=== PATIENT | male | born 1945 | race Caucasian/White ===

== ENCOUNTER 2017-09-19 11:09 | Inpatient (IN) | payer MEDICARE ==
[2017-09-19 11:47] LABS: ADD MAN DIFF? NO
[2017-09-19 11:49] LABS: BASO % 0 % (0-3); EOS % 0 % (0-3); HEMOGLOBIN 13.2 g/dL (13.0-17.5); LYMPH # 0.4 x10^3/uL (1.0-4.8); LYMPH % 5 % (24-48); MEAN CORPUSCULAR HEMOGLOBIN 28 pg (25-35); MEAN CORPUSCULAR HGB CONC 33 g/dL (31-37); MEAN CORPUSCULAR VOLUME 84 fL (79-100); MONO # 0.5 x10^3/uL (0.0-1.1); MONO % 6 % (0-9); NEUT # 7.1 x10^3uL (1.8-7.7); NEUT % 88 % (31-73); PLATELET COUNT 272 x10^3/uL (140-400); RED BLOOD COUNT 4.77 x10^6/uL (4.30-5.70); RED CELL DISTRIBUTION WIDTH 14.8 % (11.5-14.5); WHITE BLOOD COUNT 8.1 x10^3/uL (4.0-11.0)
[2017-09-19 12:02] LABS: ANION GAP 11 (6-14); BLOOD UREA NITROGEN 10 mg/dL (8-26); BUN/CREATININE RATIO 11 (6-20); CALCIUM 9.2 mg/dL (8.5-10.1); CARBON DIOXIDE 28 mmol/L (21-32); CHLORIDE 94 mmol/L (98-107); CREATININE 0.9 mg/dL (0.7-1.3); GFR 82.9; GLUCOSE 86 mg/dL (70-99); POTASSIUM 4.1 mmol/L (3.5-5.1); SODIUM 133 mmol/L (136-145)
[2017-09-19] MEDS: ONDANSETRON PF 4 MG/2 ML VIAL. IV (12:04)
[2017-09-19] MEDS: fentaNYL PF VIAL 100 MCG/2 ML VIAL IV (12:05)
[2017-09-19] MEDS: KETOROLAC 15 MG/ML VIAL. IV (12:05)
[2017-09-19 12:08] LABS: ALBUMIN/GLOBULIN RATIO 0.7 (1.0-1.7); ALK PHOS 108 U/L (46-116); ALT (SGPT) 15 U/L (16-63); AST (SGOT) 33 U/L (15-37); TOTAL BILIRUBIN 0.9 mg/dL (0.2-1.0); TOTAL PROTEIN 7.2 g/dL (6.4-8.2)
[2017-09-19 13:48] LABS: BILIRUBIN,URINE MODERATE (NEG); CLARITY,URINE CLEAR; COLOR,URINE YELLOW; GLUCOSE,URINE NEGATIVE (NEG); NITRITE,URINE NEGATIVE (NEG); PH,URINE 5.5; PROTEIN,URINE NEGATIVE (NEG-TRACE)
[2017-09-19 14:04] LABS: BACTERIA,URINE 0 /HPF (0-FEW); HYALINE CASTS, URINE MODERATE /HPF; RBC,URINE 0 /HPF (0-2); SPERM,URINE PRESENT /HPF
[2017-09-19] MEDS ORDERED: ONDANSETRON PF 4 MG/2 ML VIAL. IV (15:30)
[2017-09-19] MEDS ORDERED: hydrALAZINE 20 MG/ML VIAL. IVP (15:30)
[2017-09-19] MEDS ORDERED: DOCUSATE SODIUM 100 MG CAPSULE. PO (15:30)
[2017-09-19] MEDS: IPRATRPIUM/ALBUTEROL 0.5/2.5MG 3 ML NEBU. NEB ×2 (16:12→20:13)
[2017-09-19] MEDS: MORPHINE SULFATE 2 MG/ML DISP.SYRIN. IV ×2 (16:36→19:43)
[2017-09-19] MEDS: ENOXAPARIN 40 MG/0.4 ML SYRINGE. SQ (16:37)
[2017-09-19] MEDS: oxyCODONE/APAP 5/325 1 TAB TABLET PO (19:52)
[2017-09-19] MEDS: BUDESONIDE 0.5 MG/2 ML NEBU. NEB (20:13)
[2017-09-19] MEDS ORDERED: NON FORMULARY ITEM (Fluticasone Propionate (Flovent 110MCG Hfa) 1 PUFF) IH (21:00)
[2017-09-19] MEDS: METOPROLOL TART IMMED RELEASE 50 MG TABLET. PO (21:13)
[2017-09-20] MEDS: ALBUTEROL SULFATE 2.5 MG/3 ML NEBU. NEB (02:53)
[2017-09-20] MEDS: MORPHINE SULFATE 2 MG/ML DISP.SYRIN. IV ×3 (03:39→09:00)
[2017-09-20 04:52] LABS: ADD MAN DIFF? NO
[2017-09-20 04:59] LABS: BASO % 1 % (0-3); EOS # 0.1 x10^3/uL (0.0-0.7); EOS % 2 % (0-3); HEMATOCRIT 39.2 % (39.0-53.0); HEMOGLOBIN 12.8 g/dL (13.0-17.5); LYMPH # 0.4 x10^3/uL (1.0-4.8); LYMPH % 7 % (24-48); MEAN CORPUSCULAR HEMOGLOBIN 28 pg (25-35); MEAN CORPUSCULAR HGB CONC 33 g/dL (31-37); MEAN CORPUSCULAR VOLUME 85 fL (79-100); MONO # 0.6 x10^3/uL (0.0-1.1); MONO % 10 % (0-9); NEUT % 80 % (31-73); PLATELET COUNT 247 x10^3/uL (140-400); RED BLOOD COUNT 4.62 x10^6/uL (4.30-5.70); RED CELL DISTRIBUTION WIDTH 15.1 % (11.5-14.5); WHITE BLOOD COUNT 6.2 x10^3/uL (4.0-11.0)
[2017-09-20 05:11] LABS: ANION GAP 8 (6-14); BLOOD UREA NITROGEN 8 mg/dL (8-26); CALCIUM 9.3 mg/dL (8.5-10.1); CARBON DIOXIDE 31 mmol/L (21-32); CHLORIDE 96 mmol/L (98-107); CREATININE 0.9 mg/dL (0.7-1.3); GFR 82.9; GLUCOSE 81 mg/dL (70-99); POTASSIUM 5.1 mmol/L (3.5-5.1); SODIUM 135 mmol/L (136-145)
[2017-09-20] MEDS: PANTOPRAZOLE 40 MG TABLET.DR. PO (07:30)
[2017-09-20] MEDS: METOPROLOL TART IMMED RELEASE 50 MG TABLET. PO ×2 (08:58→21:37)
[2017-09-20] MEDS ORDERED: NON FORMULARY ITEM (Tiotropium Bromide (Spiriva) 1 CAP) IH (09:00)
[2017-09-20] MEDS: LISINOPRIL 5 MG TABLET. PO (09:00)
[2017-09-20] MEDS ORDERED: CONTRAST GIVEN MC (09:45)
[2017-09-20] MEDS: traMADol 50 MG TABLET PO (10:22)
[2017-09-20 10:43] LABS: PROSTATE SPECIFIC ANTIGEN 0.53 ng/mL (0.00-4.00)
[2017-09-20] MEDS: GADOBUTROL 7.5 MMOL/7.5 ML VIAL IV (11:51)
[2017-09-20] MEDS: MORPHINE SULFATE 4 MG/ML DISP.SYRIN. IV ×2 (12:34→17:57)
[2017-09-20] MEDS: BUDESONIDE 0.5 MG/2 ML NEBU. NEB ×3 (12:50→21:02)
[2017-09-20] MEDS: IPRATRPIUM/ALBUTEROL 0.5/2.5MG 3 ML NEBU. NEB ×3 (12:51→21:02)
[2017-09-20] MEDS: ENOXAPARIN 40 MG/0.4 ML SYRINGE. SQ (17:59)
[2017-09-20] MEDS ORDERED: BUDESONIDE 0.5 MG/2 ML NEBU. NEB (20:00)
[2017-09-21 04:48] LABS: ADD MAN DIFF? NO
[2017-09-21 04:56] LABS: BASO % 1 % (0-3); EOS # 0.1 x10^3/uL (0.0-0.7); EOS % 2 % (0-3); HEMOGLOBIN 13.3 g/dL (13.0-17.5); LYMPH # 0.5 x10^3/uL (1.0-4.8); LYMPH % 7 % (24-48); MEAN CORPUSCULAR HEMOGLOBIN 27 pg (25-35); MEAN CORPUSCULAR HGB CONC 33 g/dL (31-37); MEAN CORPUSCULAR VOLUME 84 fL (79-100); MONO # 0.8 x10^3/uL (0.0-1.1); MONO % 13 % (0-9); NEUT # 5.2 x10^3uL (1.8-7.7); NEUT % 78 % (31-73); PLATELET COUNT 269 x10^3/uL (140-400); RED BLOOD COUNT 4.86 x10^6/uL (4.30-5.70); RED CELL DISTRIBUTION WIDTH 15.3 % (11.5-14.5); WHITE BLOOD COUNT 6.7 x10^3/uL (4.0-11.0)
[2017-09-21 05:30] LABS: ALBUMIN 2.6 g/dL (3.4-5.0); ALBUMIN/GLOBULIN RATIO 0.7 (1.0-1.7); ALK PHOS 91 U/L (46-116); ALT (SGPT) 12 U/L (16-63); ANION GAP 9 (6-14); AST (SGOT) 35 U/L (15-37); BLOOD UREA NITROGEN 8 mg/dL (8-26); BUN/CREATININE RATIO 10 (6-20); CALCIUM 8.9 mg/dL (8.5-10.1); CARBON DIOXIDE 32 mmol/L (21-32); CHLORIDE 91 mmol/L (98-107); CREATININE 0.8 mg/dL (0.7-1.3); GLUCOSE 60 mg/dL (70-99); POTASSIUM 4.1 mmol/L (3.5-5.1); SODIUM 132 mmol/L (136-145); TOTAL BILIRUBIN 0.7 mg/dL (0.2-1.0); TOTAL PROTEIN 6.6 g/dL (6.4-8.2)
[2017-09-21] MEDS: IPRATRPIUM/ALBUTEROL 0.5/2.5MG 3 ML NEBU. NEB ×4 (06:31→18:05)
[2017-09-21] MEDS: BUDESONIDE 0.5 MG/2 ML NEBU. NEB ×2 (06:31→18:05)
[2017-09-21] MEDS: PANTOPRAZOLE 40 MG TABLET.DR. PO (07:30)
[2017-09-21] MEDS: MORPHINE SULFATE 4 MG/ML DISP.SYRIN. IV ×3 (07:49→21:29)
[2017-09-21] MEDS: METOPROLOL TART IMMED RELEASE 50 MG TABLET. PO ×2 (07:50→21:29)
[2017-09-21] MEDS: LISINOPRIL 5 MG TABLET. PO (08:37)
[2017-09-21 10:29] LABS: INR 1.3 (0.8-1.1); PARTIAL THROMBOPLASTIN TIME 30 SEC (24-38); PROTHROMBIN TIME PATIENT 15.1 SEC (11.7-14.0)
[2017-09-21] MEDS ORDERED: BENZOCAINE/MENTHOL LOZENGE. PO (11:45)
[2017-09-21] MEDS: BENZOCAINE/MENTHOL LOZENGE. PO (12:27)
[2017-09-21] MEDS ORDERED: LIDOCAINE WITH 8.4% SOD BICARB 3 ML DISP.SYRIN. (14:31)
[2017-09-21] MEDS ORDERED: fentaNYL PF VIAL 100 MCG/2 ML VIAL (14:47)
[2017-09-21] MEDS ORDERED: MIDAZOLAM HCL/PF 2 MG/2 ML VIAL. (14:47)
[2017-09-21] MEDS: fentaNYL PF VIAL 100 MCG/2 ML VIAL IV (15:00)
[2017-09-21] MEDS: MIDAZOLAM HCL/PF 2 MG/2 ML VIAL. IV (15:00)
[2017-09-21] MEDS: LIDOCAINE WITH 8.4% SOD BICARB 3 ML DISP.SYRIN. IJ (15:00)
[2017-09-21] MEDS: ENOXAPARIN 40 MG/0.4 ML SYRINGE. SQ (21:34)
[2017-09-22] MEDS: MORPHINE SULFATE 4 MG/ML DISP.SYRIN. IV ×5 (03:42→20:53)
[2017-09-22] MEDS: IPRATRPIUM/ALBUTEROL 0.5/2.5MG 3 ML NEBU. NEB ×5 (06:12→20:32)
[2017-09-22] MEDS: BUDESONIDE 0.5 MG/2 ML NEBU. NEB ×2 (06:12→20:32)
[2017-09-22 06:17] LABS: ANION GAP 5 (6-14); BLOOD UREA NITROGEN 14 mg/dL (8-26); CALCIUM 8.6 mg/dL (8.5-10.1); CARBON DIOXIDE 35 mmol/L (21-32); CHLORIDE 94 mmol/L (98-107); CREATININE 0.9 mg/dL (0.7-1.3); GFR 82.9; GLUCOSE 105 mg/dL (70-99); POTASSIUM 4.4 mmol/L (3.5-5.1); SODIUM 134 mmol/L (136-145)
[2017-09-22 08:13] LABS: ADD MAN DIFF? NO
[2017-09-22 08:15] LABS: BASO % 1 % (0-3); EOS # 0.1 x10^3/uL (0.0-0.7); EOS % 1 % (0-3); HEMATOCRIT 40.5 % (39.0-53.0); HEMOGLOBIN 13.4 g/dL (13.0-17.5); LYMPH # 0.4 x10^3/uL (1.0-4.8); LYMPH % 7 % (24-48); MEAN CORPUSCULAR HEMOGLOBIN 28 pg (25-35); MEAN CORPUSCULAR HGB CONC 33 g/dL (31-37); MEAN CORPUSCULAR VOLUME 84 fL (79-100); MONO # 0.7 x10^3/uL (0.0-1.1); MONO % 10 % (0-9); NEUT # 5.3 x10^3uL (1.8-7.7); NEUT % 81 % (31-73); PLATELET COUNT 247 x10^3/uL (140-400); RED BLOOD COUNT 4.81 x10^6/uL (4.30-5.70); RED CELL DISTRIBUTION WIDTH 15.2 % (11.5-14.5); WHITE BLOOD COUNT 6.5 x10^3/uL (4.0-11.0)
[2017-09-22] MEDS: METOPROLOL TART IMMED RELEASE 50 MG TABLET. PO ×2 (08:22→20:46)
[2017-09-22] MEDS: PANTOPRAZOLE 40 MG TABLET.DR. PO (08:22)
[2017-09-22] MEDS: LISINOPRIL 5 MG TABLET. PO (08:23)
[2017-09-22] MEDS: AZITHROMYCIN 250 MG TABLET. PO (08:23)
[2017-09-22] MEDS: IOHEXOL 300 MG/ML 100ML VIAL. IV (08:55)
[2017-09-22] MEDS: IOHEXOL 240 MG/ML 50ML VIAL. PO (08:56)
[2017-09-22 15:31] LABS: ALBUM 2.8 g/dL (2.9-4.4); ALPHA 1 0.4 g/dL (0.0-0.4); BETA 0.8 g/dL (0.7-1.3); GAMMA 0.8 g/dL (0.4-1.8); M-SPIKE Not Observed g/dL (Not Observed); PROTEIN TOTAL 5.7 g/dL (6.0-8.5)
[2017-09-22] MEDS: ENOXAPARIN 40 MG/0.4 ML SYRINGE. SQ (16:46)
[2017-09-22] MEDS: LACTOBACILLUS RHAMNOSUS GG 1 CAPSULE. PO (20:46)
[2017-09-22] MEDS: oxyCODONE/APAP 5/325 1 TAB TABLET PO (20:47)
[2017-09-22 20:52] LABS: POC GLUCOSE 121 mg/dL (70-99)
[2017-09-23] MEDS: MORPHINE SULFATE 4 MG/ML DISP.SYRIN. IV ×5 (01:45→19:29)
[2017-09-23] MEDS: IPRATRPIUM/ALBUTEROL 0.5/2.5MG 3 ML NEBU. NEB ×4 (06:11→18:33)
[2017-09-23] MEDS: BUDESONIDE 0.5 MG/2 ML NEBU. NEB ×2 (06:11→18:33)
[2017-09-23] MEDS: AZITHROMYCIN 250 MG TABLET. PO (09:05)
[2017-09-23] MEDS: LISINOPRIL 5 MG TABLET. PO (09:05)
[2017-09-23] MEDS: LACTOBACILLUS RHAMNOSUS GG 1 CAPSULE. PO ×2 (09:05→21:27)
[2017-09-23] MEDS: METOPROLOL TART IMMED RELEASE 50 MG TABLET. PO ×2 (09:06→21:28)
[2017-09-23] MEDS: PANTOPRAZOLE 40 MG TABLET.DR. PO (09:06)
[2017-09-23] MEDS: oxyCODONE/APAP 10/325 1 TAB TABLET PO (09:07)
[2017-09-23] MEDS ORDERED: MAGNESIUM HYDROXIDE 2,400 MG/30 ML ORAL.SUSP. PO (11:00)
[2017-09-23] MEDS: MORPHINE ER 15 MG TABLET.ER PO ×2 (12:30→21:33)
[2017-09-23] MEDS: DOCUSATE SODIUM 100 MG CAPSULE. PO (12:30)
[2017-09-23] MEDS: ENOXAPARIN 40 MG/0.4 ML SYRINGE. SQ (16:06)
[2017-09-24] MEDS: LISINOPRIL 5 MG TABLET. PO (08:03)
[2017-09-24] MEDS: oxyCODONE/APAP 10/325 1 TAB TABLET PO ×2 (08:04→22:03)
[2017-09-24] MEDS: MORPHINE ER 15 MG TABLET.ER PO ×2 (08:05→22:04)
[2017-09-24] MEDS: AZITHROMYCIN 250 MG TABLET. PO (08:06)
[2017-09-24] MEDS: METOPROLOL TART IMMED RELEASE 50 MG TABLET. PO ×2 (08:06→22:04)
[2017-09-24] MEDS: DOCUSATE SODIUM 100 MG CAPSULE. PO (08:07)
[2017-09-24] MEDS: PANTOPRAZOLE 40 MG TABLET.DR. PO (08:07)
[2017-09-24] MEDS: LACTOBACILLUS RHAMNOSUS GG 1 CAPSULE. PO (08:07)
[2017-09-24] MEDS: IPRATRPIUM/ALBUTEROL 0.5/2.5MG 3 ML NEBU. NEB ×4 (08:45→19:26)
[2017-09-24] MEDS: BUDESONIDE 0.5 MG/2 ML NEBU. NEB ×2 (08:45→19:26)
[2017-09-24] MEDS: MORPHINE SULFATE 4 MG/ML DISP.SYRIN. IV (16:49)
[2017-09-24] MEDS: ENOXAPARIN 40 MG/0.4 ML SYRINGE. SQ (16:50)
[2017-09-24] MEDS: ACETAMINOPHEN 325 MG TABLET. PO (22:05)
[2017-09-25] MEDS: MORPHINE SULFATE 4 MG/ML DISP.SYRIN. IV (01:35)
[2017-09-25] MEDS: oxyCODONE/APAP 10/325 1 TAB TABLET PO ×3 (06:45→20:42)
[2017-09-25] MEDS: BUDESONIDE 0.5 MG/2 ML NEBU. NEB ×2 (07:23→20:31)
[2017-09-25] MEDS: IPRATRPIUM/ALBUTEROL 0.5/2.5MG 3 ML NEBU. NEB ×5 (07:23→20:31)
[2017-09-25] MEDS: DOCUSATE SODIUM 100 MG CAPSULE. PO (09:00)
[2017-09-25] MEDS: AZITHROMYCIN 250 MG TABLET. PO (09:05)
[2017-09-25] MEDS: MORPHINE ER 15 MG TABLET.ER PO ×2 (09:06→23:15)
[2017-09-25] MEDS: PANTOPRAZOLE 40 MG TABLET.DR. PO (09:06)
[2017-09-25] MEDS: traMADol 50 MG TABLET PO (09:06)
[2017-09-25] MEDS: LISINOPRIL 5 MG TABLET. PO (09:07)
[2017-09-25] MEDS: METOPROLOL TART IMMED RELEASE 50 MG TABLET. PO ×2 (09:10→23:15)
[2017-09-25] MEDS: ENOXAPARIN 40 MG/0.4 ML SYRINGE. SQ (16:41)
[2017-09-26 05:05] LABS: ADD MAN DIFF? NO
[2017-09-26 05:12] LABS: BASO % 1 % (0-3); EOS # 0.2 x10^3/uL (0.0-0.7); EOS % 2 % (0-3); HEMATOCRIT 41.6 % (39.0-53.0); HEMOGLOBIN 13.6 g/dL (13.0-17.5); LYMPH # 0.4 x10^3/uL (1.0-4.8); LYMPH % 6 % (24-48); MEAN CORPUSCULAR HEMOGLOBIN 28 pg (25-35); MEAN CORPUSCULAR HGB CONC 33 g/dL (31-37); MEAN CORPUSCULAR VOLUME 84 fL (79-100); MONO # 0.8 x10^3/uL (0.0-1.1); MONO % 12 % (0-9); NEUT # 5.4 x10^3uL (1.8-7.7); NEUT % 80 % (31-73); PLATELET COUNT 293 x10^3/uL (140-400); RED BLOOD COUNT 4.96 x10^6/uL (4.30-5.70); RED CELL DISTRIBUTION WIDTH 15.3 % (11.5-14.5); WHITE BLOOD COUNT 6.8 x10^3/uL (4.0-11.0)
[2017-09-26 05:31] LABS: ANION GAP 4 (6-14); BLOOD UREA NITROGEN 8 mg/dL (8-26); CARBON DIOXIDE 33 mmol/L (21-32); CHLORIDE 91 mmol/L (98-107); CREATININE 0.8 mg/dL (0.7-1.3); GLUCOSE 90 mg/dL (70-99); SODIUM 128 mmol/L (136-145)
[2017-09-26] MEDS: ALBUTEROL SULFATE 2.5 MG/3 ML NEBU. NEB (07:52)
[2017-09-26] MEDS: BUDESONIDE 0.5 MG/2 ML NEBU. NEB ×2 (07:52→22:44)
[2017-09-26] MEDS: IPRATRPIUM/ALBUTEROL 0.5/2.5MG 3 ML NEBU. NEB ×4 (07:54→19:32)
[2017-09-26] MEDS: POLYETHYLENE GLYCOL 3350 17 GM PACKET. PO (09:44)
[2017-09-26] MEDS: AZITHROMYCIN 250 MG TABLET. PO (09:44)
[2017-09-26] MEDS: METOPROLOL TART IMMED RELEASE 50 MG TABLET. PO ×2 (09:45→22:09)
[2017-09-26] MEDS: DOCUSATE SODIUM 100 MG CAPSULE. PO (09:45)
[2017-09-26] MEDS: LISINOPRIL 5 MG TABLET. PO (09:45)
[2017-09-26] MEDS: MORPHINE ER 15 MG TABLET.ER PO ×2 (09:46→22:10)
[2017-09-26] MEDS: oxyCODONE/APAP 10/325 1 TAB TABLET PO ×2 (09:52→14:14)
[2017-09-26] MEDS: PANTOPRAZOLE 40 MG TABLET.DR. PO (10:02)
[2017-09-26] MEDS ORDERED: LACTOBACILLUS RHAMNOSUS GG 1 CAPSULE. PO (15:00)
[2017-09-26] MEDS: ENOXAPARIN 40 MG/0.4 ML SYRINGE. SQ (22:09)
[2017-09-27] MEDS: PANTOPRAZOLE 40 MG TABLET.DR. PO (05:43)
[2017-09-27] MEDS: oxyCODONE/APAP 5/325 1 TAB TABLET PO (05:43)
[2017-09-27] MEDS: BUDESONIDE 0.5 MG/2 ML NEBU. NEB ×2 (06:58→19:30)
[2017-09-27] MEDS: IPRATRPIUM/ALBUTEROL 0.5/2.5MG 3 ML NEBU. NEB ×5 (06:58→23:10)
[2017-09-27] MEDS: LISINOPRIL 5 MG TABLET. PO (08:34)
[2017-09-27] MEDS: AZITHROMYCIN 250 MG TABLET. PO (08:35)
[2017-09-27] MEDS: METOPROLOL TART IMMED RELEASE 50 MG TABLET. PO ×2 (08:35→21:46)
[2017-09-27] MEDS: DOCUSATE SODIUM 100 MG CAPSULE. PO (08:38)
[2017-09-27] MEDS: MORPHINE ER 15 MG TABLET.ER PO ×2 (09:56→21:46)
[2017-09-27] MEDS: silver sulfADIAZINE 1% CREAM 25GM TUBE. TP (09:58)
[2017-09-27] MEDS: oxyCODONE/APAP 10/325 1 TAB TABLET PO (16:45)
[2017-09-27] MEDS: ENOXAPARIN 40 MG/0.4 ML SYRINGE. SQ (16:48)
[2017-09-27] MEDS: GADOBUTROL 7.5 MMOL/7.5 ML VIAL IV (17:46)
[2017-09-28] MEDS: PANTOPRAZOLE 40 MG TABLET.DR. PO (05:56)
[2017-09-28] MEDS: oxyCODONE/APAP 5/325 1 TAB TABLET PO (05:56)
[2017-09-28] MEDS ORDERED: LIDO:MAALOX:BENADRYL 1:1:1 180 ML BOTTLE. PO (08:30)
[2017-09-28] MEDS: IPRATRPIUM/ALBUTEROL 0.5/2.5MG 3 ML NEBU. NEB ×5 (08:44→22:00)
[2017-09-28] MEDS: BUDESONIDE 0.5 MG/2 ML NEBU. NEB ×3 (08:44→21:30)
[2017-09-28] MEDS: DOCUSATE SODIUM 100 MG CAPSULE. PO (09:00)
[2017-09-28] MEDS: silver sulfADIAZINE 1% CREAM 25GM TUBE. TP (09:00)
[2017-09-28] MEDS: CLOTRIMAZOLE 10 MG TROCHE. MM ×4 (11:05→20:44)
[2017-09-28] MEDS: METOPROLOL TART IMMED RELEASE 50 MG TABLET. PO ×2 (11:06→20:44)
[2017-09-28] MEDS: MORPHINE ER 15 MG TABLET.ER PO ×2 (11:06→20:44)
[2017-09-28] MEDS: LISINOPRIL 5 MG TABLET. PO (11:07)
[2017-09-28] MEDS: MORPHINE SULFATE 4 MG/ML DISP.SYRIN. IV (13:27)
[2017-09-28] MEDS: ENOXAPARIN 40 MG/0.4 ML SYRINGE. SQ (20:42)
[2017-09-29] MEDS: CLOTRIMAZOLE 10 MG TROCHE. MM ×6 (00:14→21:22)
[2017-09-29] MEDS: PANTOPRAZOLE 40 MG TABLET.DR. PO (06:35)
[2017-09-29] MEDS: BUDESONIDE 0.5 MG/2 ML NEBU. NEB (07:27)
[2017-09-29] MEDS: IPRATRPIUM/ALBUTEROL 0.5/2.5MG 3 ML NEBU. NEB ×5 (07:28→22:00)
[2017-09-29] MEDS: DOCUSATE SODIUM 100 MG CAPSULE. PO (09:00)
[2017-09-29] MEDS: LISINOPRIL 5 MG TABLET. PO (09:31)
[2017-09-29] MEDS: MORPHINE ER 15 MG TABLET.ER PO ×2 (09:32→21:22)
[2017-09-29] MEDS: METOPROLOL TART IMMED RELEASE 50 MG TABLET. PO ×2 (09:32→21:21)
[2017-09-29] MEDS: silver sulfADIAZINE 1% CREAM 25GM TUBE. TP (09:33)
[2017-09-29] MEDS: ENOXAPARIN 40 MG/0.4 ML SYRINGE. SQ (17:58)
[2017-09-30] MEDS: CLOTRIMAZOLE 10 MG TROCHE. MM ×2 (05:50→08:27)
[2017-09-30] MEDS: IPRATRPIUM/ALBUTEROL 0.5/2.5MG 3 ML NEBU. NEB ×2 (06:00→10:00)
[2017-09-30] MEDS: BUDESONIDE 0.5 MG/2 ML NEBU. NEB ×2 (08:00→12:43)
[2017-09-30] MEDS: DOCUSATE SODIUM 100 MG CAPSULE. PO (08:20)
[2017-09-30] MEDS: PANTOPRAZOLE 40 MG TABLET.DR. PO (08:20)
[2017-09-30] MEDS: silver sulfADIAZINE 1% CREAM 25GM TUBE. TP (08:21)
[2017-09-30] MEDS: MORPHINE ER 15 MG TABLET.ER PO (08:21)
[2017-09-30] MEDS: LISINOPRIL 5 MG TABLET. PO (08:24)
[2017-09-30] MEDS: METOPROLOL TART IMMED RELEASE 50 MG TABLET. PO (08:24)
== END 2017-09-30 15:00 | disposition home or self-care (01) | DRG 166 ==
LOC: ER 11:09 → 4 NORTH 12:30
PROC: 0P9 Upper Bones, Drainage (ICD-10-PCS; principal; 2017-09-21)
DX: C34.12 Malignant neoplasm of upper lobe, left bronchus or lung (principal); J96.01 Acute respiratory failure with hypoxia; C79.51 Secondary malignant neoplasm of bone; I11.0 Hypertensive heart disease with heart failure; I50.9 Heart failure, unspecified; J44.1 Chronic obstructive pulmonary disease with (acute) exacerbation; M84.48XA Pathological fracture, other site, initial encounter for fracture; M48.061 Spinal stenosis, lumbar region without neurogenic claudication; G89.3 Neoplasm related pain (acute) (chronic); Z59.0 Homelessness; Z66 Do not resuscitate; Z80.0 Family history of malignant neoplasm of digestive organs; Z80.1 Family history of malignant neoplasm of trachea, bronchus and lung; Z86.010 Personal history of colon polyps; Z86.79 Personal history of other diseases of the circulatory system; Z88.0 Allergy status to penicillin; F17.201 Nicotine dependence, unspecified, in remission; H26.9 Unspecified cataract; Z51.5 Encounter for palliative care; M54.5 Low back pain
CPT/HCPCS: 20220; 36415; 70553; 71260; 72128; 72131; 72158; 74177; 77012; 77290; 77295; 77300; 77334; 77336; 77387; 77412; 77417; 78306; 80048; 80053; 81001; 82962; 84165; 85025; 85610; 85730; 87086; 88305; 88341; 88342; 94640; 94760; 96374; 96375; 97161-GP; 97166-GO; 97535-GO; 99152; 99285; 99285-25; A9503; A9585; G0103; J1650; J1885; J2250; J2270; J2405; J3010; J7613; J7620; J7626; Q0144

== ENCOUNTER → 2018-03-23 | Outpatient (CLI) | payer MEDICARE ==
[2017-09-30 10:52] VITALS: BP 121/60
[~2018-03-23] MED LIST: ACET500T68 PO; ALBU2.5V14 NEB; BISO5TAB2 PO; DOCU-109 PO; ESOM40CA PO; FLUT12AE IH; IOHEXOL 240 MG/ML 50ML VIAL. PO ONE; IOHEXOL 300 MG/ML 100ML VIAL. IV ONE; LISI-338 PO; MORP15TA PO; MORP15TA3 PO; OXYC-411 PO; POLY17PO3 PO; PROAIR HFA8.5 GM INH; TIOT18CA IH
--- NOTE | 2018-03-23 17:16 | RAD ---
CLINICAL HISTORY: Lung cancer, follow-up COMPARISON: CT 09/20/2017 TECHNIQUE: CT of the chest, abdomen and pelvis following the administration of 75 mL of Omnipaque 300 intravenous contrast. Oral contrast was administered. Coronal and sagittal reformatted images were generated. PQRS compliance statement - One or more of the following individualized dose reduction techniques were utilized for this study: 1. Automated exposure control 2. Adjustment of the mA and/or kV according to patient size 3. Use of iterative reconstruction technique FINDINGS: Chest: The heart is not enlarged. Thickening of the cardiac apex, possibly from old infarct. Coronary artery calcifications are seen. Prominence of pulmonary arterial trunk measures 3.7 cm. No mediastinal lymphadenopathy. A left infrahilar lymph node measures 2 x 1.3 cm, previously 2.5 x 2 cm. No axillary lymphadenopathy. A few prominent AP window lymph nodes are seen, not enlarged by size criteria. No pleural effusion or pneumothorax. Bilateral emphysematous changes are seen. The previously seen left upper lobe lung nodule adjacent to the major fissure measures 1.2 x 0.3 cm, previously 1.9 x 1.5 cm. A 6 mm right upper lobe lung nodule (image 14) previously measured 1 cm. The previously right lower lobe and nodular opacity is considerably smaller on today's exam measuring 1.3 x 0.3 cm, previously 2.7 x 1.5 cm. Linear platelike opacities left lower lobe likely scarring/atelectasis. Fissural thickening along the major fissure inferiorly is now seen, possibly atelectasis. ABDOMEN: No focal liver lesion. Gallbladder is unremarkable. No intra or extrahepatic biliary ductal dilatation. Spleen is borderline enlarged measuring 12.5 cm in length. Right adrenal gland is normal. Minimal thickening of the left adrenal gland. Pancreas is unremarkable. Bilateral renal cystic lesions are essentially stable. No hydronephrosis. 3 mm calcification in the left upper pole likely nonobstructing renal calculus. Aortobiiliac stent graft is seen. Dense atherosclerotic calcifications of aorta are noted. Large hiatal hernia with associated entire stomach within the thorax. No small or large bowel dilatation. Diffuse colonic diverticulosis without evidence of acute diverticulitis. No abdominal or pelvic lymphadenopathy. No abdominal or pelvic ascites. No pelvic mass. Subcutaneous soft tissue masses overlying the left scapula are essentially stable in size. When compared to 09/20/2017 there is now been an interval pathologic fracture through the L5 vertebral body with mild posterior retropulsion into the central canal. The degree of bone destruction at the right lateral L3 transverse process has decreased and calcified. Mild deformity of the left posterolateral fifth rib in the region of previous expansile lytic metastasis. This appears progressively ossified, likely favorable treatment response. The other lytic lesions are similar in appearance. IMPRESSION: 1. In general, favorable treatment response with decrease in size of the bilateral lung nodules and hilar lymphadenopathy. 2. When compared to prior CT 09/20/2017 there has been interval pathologic fracture of L5 with resultant vertebra plana and posterior retropulsion into the central canal. 3. The numerous lytic lesion seen on prior exam now appear more ossified, favorable treatment response. 4. Bilateral emphysematous changes are seen. 5. Pulmonary arterial trunk dilatation, likely pulmonary arterial hypertension. 6. Soft tissue nodules overlying the left scapula essentially stable in size, likely sebaceous cysts. Electronically signed by: Ronal Lepe MD (03/23/2018 5:12 PM) [facility]
== END | disposition home or self-care (01) ==
LOC: CT 10:38
PROVIDERS: ATTEND Internal Medicine Hematology & Oncology
DX: C34.92 Malignant neoplasm of unspecified part of left bronchus or lung (principal); I70.0 Atherosclerosis of aorta; J43.8 Other emphysema; M84.48XD Pathological fracture, other site, subsequent encounter for fracture with routine healing; R59.1 Generalized enlarged lymph nodes
CPT/HCPCS: 71260; 74177; Q9966; Q9967

== ENCOUNTER → 2018-06-23 | Outpatient (CLI) | payer MEDICARE ==
[2017-09-30 10:52] VITALS: BP 121/60
[~2018-06-23] MED LIST changes: +CONTRAST GIVEN. MC PRN; +POLY17PO28 PO; -POLY17PO3 PO
--- NOTE | 2018-06-23 14:43 | RAD ---
CT CHEST ABD PELVIS W/CONTRAST Indication: Non-small cell lung cancer. Exposure: One or more of the following individualized dose reduction techniques were utilized for this examination: 1. Automated exposure control 2. Adjustment of the mA and/or kV according to patient size 3. Use of iterative reconstruction technique. Comparison: March 23, 2018 Contrast: Intravenous contrast was given. Oral contrast was given. CHEST: Thoracic aorta mildly calcified but no evidence of aneurysm or dissection. Aorta is ectatic. The main pulmonary artery and main pulmonary artery trunks are dilated, similar to prior study. The thyroid gland is unremarkable. No new mediastinal, hilar or axillary lymph node enlargement is identified. Heart size is stable. No significant pericardial effusion. Small left pleural effusion. Left upper lobe pulmonary nodule, series 2, image 16 is 12 mm x 3 mm, unchanged from similar previous slice. Small nodule in the right upper lobe, image 16 measures slightly smaller on today's examination, 3 mm as compared with 6 mm. Ill-defined opacity in the right lower lobe is unchanged. No new dominant pulmonary mass is evident. Emphysematous changes are noted. Trachea is patent. Large hiatal hernia with much of the stomach in the chest. There is some sclerotic change involving the left posterolateral rib, unchanged, could be related to old trauma or metastatic lesion. Subcutaneous nodules posterior to the left scapula have decreased in size. IMPRESSION: 1. Most of the pulmonary nodules and opacities are similar as the prior study. A single small right upper lobe pulmonary nodule has slightly decreased in size. No new dominant mass is identified. 2. Subcutaneous nodules posterior to the left scapula have decreased in size. 3. Sclerotic lesion involving a posterolateral left rib, approximately the fifth rib, is unchanged. Abdomen pelvis: Large hiatal hernia, most of the stomach is within the chest. No evidence of liver lesion. Spleen is borderline enlarged, 12.5 cm, appears overall similar as prior study. Pancreas is difficult to define but no gross abnormality. The left adrenal demonstrates a slightly thickened morphology, similar to the prior study. Right adrenal gland demonstrates no mass. Kidneys demonstrate symmetric enhancement. There are several small low-density lesions identified in both kidneys, stable, likely cysts. Tiny left upper pole renal calcification compatible with a nonobstructive calculus, also again identified. No evidence of calcified gallstone. Gallbladder mildly distended. The aorta is tortuous and contains an endovascular stents. The stent and the aortoiliac structures appear similar as the prior exam. No significant retroperitoneal or mesenteric lymph node enlargement. Mildly prominent inguinal lymph nodes, measuring up to 10 mm diameter short axis on the left than 12 mm diameter short axis on the right, have slightly increased in size since prior study. Colonic diverticulosis. No gross bowel obstruction. No definite acute colitis is seen. No evidence of ascites. There is an small fat-containing anterior abdominal wall hernia, similar size as prior study. There is slightly greater nonfatty density, suggesting some superimposed inflammation or fibrosis. There is some ill-defined tissue in the right peritoneum, just to the right of midline and just anterior to the iliac bifurcation, series 4, images 41 through 45. This may represent some unopacified bowel. A small mass is not possible to exclude. Measures about 4 cm maximum diameter. Severe compression fracture of L5 is again identified. There has been development of a moderate compression fracture of L to, and a mild compression fracture of the superior endplate of L1, since the previous exam. There is lumbar spondylosis with lumbar stenosis. Slight posterior retropulsion of the posterosuperior edge of L3 and of L2, resulting in encroachment upon the spinal canal which is subsequently narrowed. IMPRESSION: 1. Mild increase in size of inguinal lymph nodes, nonspecific but possible [place] metastases. 2. Soft tissue mass in the peritoneal cavity, just to the right of midline, may just represent unopacified bowel but a pathologic or metastatic mass is not excludable. 3. Development of mild to moderate compression fractures of L2 on L3, with mild posterior retropulsion resulting in spinal canal narrowing. These could be pathologic fractures. 4. Borderline splenomegaly, unchanged. Electronically signed by: Carson Cortez MD (06/23/2018 2:40 PM) [id number]
== END | disposition home or self-care (01) ==
LOC: CT 14:02
PROVIDERS: ATTEND Internal Medicine Hematology & Oncology
DX: C34.12 Malignant neoplasm of upper lobe, left bronchus or lung (principal); K57.30 Diverticulosis of large intestine without perforation or abscess without bleeding; M48.56XA Collapsed vertebra, not elsewhere classified, lumbar region, initial encounter for fracture; M48.061 Spinal stenosis, lumbar region without neurogenic claudication; M47.896 Other spondylosis, lumbar region; E65 Localized adiposity; K44.9 Diaphragmatic hernia without obstruction or gangrene; J90 Pleural effusion, not elsewhere classified; R91.8 Other nonspecific abnormal finding of lung field; R59.0 Localized enlarged lymph nodes; Z80.1 Family history of malignant neoplasm of trachea, bronchus and lung
CPT/HCPCS: 71260; 74177; Q9966; Q9967

== ENCOUNTER → 2018-09-27 | Outpatient (CLI) | payer MEDICARE ==
[2017-09-30 10:52] VITALS: BP 121/60
[~2018-09-27] MED LIST changes: +ALBU2.5V8 INH; -CONTRAST GIVEN. MC PRN; -PROAIR HFA8.5 GM INH
--- NOTE | 2018-09-27 13:37 | RAD ---
CT STUDY OF THE CHEST AND ABDOMEN AND PELVIS WITH CONTRAST CLINICAL INDICATIONS: Non-small cell cancer. Follow-up study. COMPARISON: June 23, 2018. TECHNIQUE: After IV infusion of 75 cc of Omnipaque 300, helical CT scanning of the chest and abdomen and pelvis was performed. GI contrast was administered per mouth. PQRS compliance Statement One or more of the following individualized dose reduction techniques were utilized for this study: 1. Automated exposure control 2. Adjustment of the mA and/or kV according to patient size 3. Use of iterative reconstruction technique CHEST CT: No enlarged thoracic adenopathy is evident. The heart size is at the upper limits of normal. No pericardial effusion is seen. Calcified atheromatous disease of the coronary arteries is seen. Mild sclerosis of the left fifth rib is seen. This is due to an old healed fracture. Similar finding is seen involving the lateral posterior aspect of the left fourth rib. No lytic process is seen otherwise. Large hiatal hernia is seen and of most the stomach is within the chest. Minimal left-sided pleural effusion is seen posteriorly and medially. This is unchanged. There is a small nodular lung infiltrate within the adjacent posterior medial aspect of the left lower lobe which is stable. No new lung nodules or new lung infiltrates are seen. Chronic atelectasis of the right lung base related to the large hiatal hernia is stable.. The proximal bronchial tree is patent otherwise. IMPRESSION: No new abnormality. Stable small posterior medial left lower lobe lung infiltrate with associated small left-sided pleural effusion. No new lung nodules are evident. ABDOMEN AND PELVIS CT: No hepatic metastasis is evident. The spleen is not enlarged. Pancreas is unremarkable. The gallbladder is distended and no extra hepatic biliary ductal dilatation is seen. Endoluminal aortic stent graft is in place. No enlargement of the [place] aneurysmal sac around the endoluminal stent graft is seen. No enlarged abdominal lymphadenopathy is evident. Bilateral inguinal lymph nodes are stable without significant enlargement. No new pelvic lymphadenopathy is evident. Urinary bladder wall is smooth. Prostate gland is unchanged. No obstructive bowel pattern is evident. Sigmoid diverticulosis is seen without diverticulitis. No free intraperitoneal air or free fluid or mesenteric edema is evident. Again seen is a question of a mesenteric soft tissue mass versus nonopacified bowel loop within the midline of the abdomen seen on series 4 and images 40 through 45. This is unchanged. Again seen is a small anterior midline abdominal wall hernia containing fat. There is inflammatory change present here. It is near the umbilicus. This is unchanged. Again seen are compression fractures of L1 and L2 and L5 which are unchanged. Again noted is posterior protrusion of bony elements into the anterior spinal canal at L5 which is unchanged. IMPRESSION: Stable study. No new abnormality. Question of mesenteric soft tissue mass versus nonopacified small bowel is unchanged. Nonenlarged bilateral inguinal lymph nodes are stable. Chronically distended gallbladder. It measures up to almost 13 cm. Stable compression fractures of L1 and L2 and L5. Electronically signed by: Jimbo Rebolledo MD (09/27/2018 1:34 PM) [id number]
== END | disposition home or self-care (01) ==
LOC: CT 11:29
PROVIDERS: ATTEND Internal Medicine Hematology & Oncology
DX: C79.51 Secondary malignant neoplasm of bone (principal); C34.90 Malignant neoplasm of unspecified part of unspecified bronchus or lung; J90 Pleural effusion, not elsewhere classified; J98.11 Atelectasis; N28.1 Cyst of kidney, acquired; I25.10 Atherosclerotic heart disease of native coronary artery without angina pectoris; K44.9 Diaphragmatic hernia without obstruction or gangrene; K82.8 Other specified diseases of gallbladder; K57.30 Diverticulosis of large intestine without perforation or abscess without bleeding; K43.9 Ventral hernia without obstruction or gangrene; M48.56XA Collapsed vertebra, not elsewhere classified, lumbar region, initial encounter for fracture; M51.26 Other intervertebral disc displacement, lumbar region; Z88.0 Allergy status to penicillin
CPT/HCPCS: 71260; 74177; Q9966; Q9967

== ENCOUNTER → 2019-01-25 | Outpatient (CLI) | payer MEDICARE ==
[2017-09-30 10:52] VITALS: BP 121/60
[~2019-01-25] MED LIST changes: +CONTRAST GIVEN. MC PRN
--- NOTE | 2019-01-25 15:45 | RAD ---
CT of the chest, abdomen, and pelvis 01/25/2019 INDICATION: Follow-up exam. History of non-small cell lung cancer. COMPARISON STUDY: CT of the chest abdomen and pelvis June 23, 2018. TECHNIQUE: Multidetector CT imaging of the chest, abdomen, and pelvis was performed following the administration of IV contrast. FINDINGS: CHEST: Heart size is mildly enlarged. No pericardial effusion is identified. Coronary calcification is noted. The pulmonary arteries are dilated measuring 3 cm on the right and approximately 3 cm on the left. Findings are suggestive of pulmonary arterial hypertension. No mediastinal adenopathy is identified. There is a large hiatal hernia with intrathoracic stomach. The appearance is unchanged. Severe emphysematous changes are also stable. No pneumothorax, or pleural effusion is seen. Interval development of trace bilateral effusions. Nodular areas of consolidation in the left lower lobe have increased in the interim. Somewhat nodular areas of consolidation in the right lower lobe have also increased significantly in the interim. New nodular opacity in the right upper lobe measuring 9 mm in diameter (axial image 28). Liver gallbladder are grossly unremarkable. Spleen is grossly unremarkable. Cyst is present within the superior pole the right kidney. Left kidney is grossly unremarkable. Pancreas is somewhat poorly visualized but appears to be grossly unremarkable. Adrenal glands are grossly unremarkable. Lack of intraperitoneal fat limits evaluation of the bowel. No evidence of bowel obstruction is seen. Mass to the right of midline in the inferior abdomen is unchanged. This may represent unopacified terminal ileum. Prior endovascular repair of abdominal aortic aneurysm noted. No free fluid or free air is seen in the abdomen or pelvis. There are compression fractures involving all lumbar vertebral bodies. Compression fractures 3 and 4 new in the interim since comparison exam.. Vertebral plana configuration of L5 is similar. Similar loss of height at L1-L2 noted. Spinal stenosis at the L5 level is present. The bony thorax appears to be grossly intact. Diffuse osteopenia is noted. IMPRESSION: 1. Interval increase in multifocal areas of consolidation in the right lower lobe. Patchy consolidative areas within the left lower lobe also seen. Findings could represent recurrence/metastasis. Infectious or inflammatory process is also possible. Trace bilateral pleural effusions now present. 2.New nodular process in the right upper lobe measuring up to 9 mm in diameter as described. Metastasis not excluded. Short-term follow-up exam recommended. 3. New relatively mild compression fractures involving the L3 and L4 vertebral bodies. Findings could be due to bone demineralization. Fracture secondary to metastatic disease cannot be completely excluded by CT given patient history. Contrast-enhanced MRI evaluation could be performed as clinically indicated. 4. Masslike density just to the right of midline in the inferior abdomen is similar to comparison studies. Small the most likely reflect nonopacified terminal ileum. Continued attention on follow-up is recommended. 5. Other chronic changes as described above. CT DOSING PQRS STATEMENT: One or more of the following individualized dose reduction techniques were utilized for this examination: 1. Automated exposure control 2. Adjustment of the mA and/or kV according to patient size 3. Use of iterative reconstruction technique Electronically signed by: Jacob Cheng MD (01/25/2019 3:42 PM) [id number]
== END | disposition home or self-care (01) ==
LOC: CT 08:23
PROVIDERS: ATTEND Internal Medicine Hematology & Oncology
DX: C34.90 Malignant neoplasm of unspecified part of unspecified bronchus or lung (principal); J43.9 Emphysema, unspecified; I51.7 Cardiomegaly; I25.10 Atherosclerotic heart disease of native coronary artery without angina pectoris; R19.09 Other intra-abdominal and pelvic swelling, mass and lump; M48.56XA Collapsed vertebra, not elsewhere classified, lumbar region, initial encounter for fracture; M48.061 Spinal stenosis, lumbar region without neurogenic claudication; M85.88 Other specified disorders of bone density and structure, other site; Z88.8 Allergy status to other drugs, medicaments and biological substances
CPT/HCPCS: 71260; 74177; Q9966; Q9967

== ENCOUNTER → 2019-02-07 | Outpatient (CLI) | payer MEDICARE ==
[2017-09-30 10:52] VITALS: BP 121/60
[~2019-02-07] MED LIST changes: -CONTRAST GIVEN. MC PRN; -IOHEXOL 240 MG/ML 50ML VIAL. PO ONE; -IOHEXOL 300 MG/ML 100ML VIAL. IV ONE
--- NOTE | 2019-02-07 15:35 | RAD ---
Complete abdomen ultrasound study Clinical indications: Elevated alkaline phosphatase. FINDINGS: FINDINGS: The pancreas is poorly visualized due to overlying bowel gas. No focal hepatic mass is seen. The liver measures 19.4 cm in length which is mildly enlarged. The extra hepatic bile duct measures 3.5 mm in caliber which is normal. The intrahepatic portion of the IVC is unremarkable. Multiple gallstones are seen within the gallbladder. No gallbladder wall thickening or pericholecystic free fluid is evident. The gallbladder is distended measuring 12.9 cm. Distal abdominal aorta measures 3 cm in greatest AP or transverse dimension. Patient has history of AAA repair. The spleen measures 12.2 cm in length which is upper limits of normal. The length of the left kidney is 12.6 cm and the length of the right kidney is 11.2 cm. No hydronephrosis or renal mass or perinephric fluid collection is seen on either side. There is a small cyst of the upper pole of the right kidney measuring 1.7 cm. Another cyst of the medial aspect of the right kidney is seen measuring 2.0 cm. There is an increase in cortical echogenicity of the right kidney and this may be secondary to older age. IMPRESSION: Hepatomegaly. Cholelithiasis. Distended gallbladder. Focal dilatation of the distal abdominal aorta measuring up to 3 cm in greatest AP or transverse dimension. The patient has a history of AAA repair. Electronically signed by: Jimbo Rebolledo MD (02/07/2019 3:32 PM) [id number]
== END | disposition home or self-care (01) ==
LOC: US 14:25
PROVIDERS: ATTEND Internal Medicine Hematology & Oncology
DX: K80.20 Calculus of gallbladder without cholecystitis without obstruction (principal); R16.0 Hepatomegaly, not elsewhere classified; K82.8 Other specified diseases of gallbladder; N28.1 Cyst of kidney, acquired; Z88.0 Allergy status to penicillin
CPT/HCPCS: 76700

== ENCOUNTER → 2019-05-02 | Outpatient (CLI) | payer MEDICARE ==
[2017-09-30 10:52] VITALS: BP 121/60
[~2019-05-02] MED LIST changes: -BISO5TAB2 PO; +BISO5TAB4 PO; +IOHEXOL 240 MG/ML 50ML VIAL. PO ONE; +IOHEXOL 300 MG/ML 100ML VIAL. IV ONE; +MORP-15 PO; -MORP15TA3 PO
--- NOTE | 2019-05-02 16:01 | RAD ---
Examination: CT CHEST ABD PELVIS W/CONTRAST History: Non-small cell lung cancer Comparison/Correlation: 06/23/2018, 09/27/2018, 01/25/2019 CT chest abdomen and pelvis with contrast Findings: Axial images of the chest, abdomen, and pelvis were obtained following IV and oral contrast. Sagittal and coronal reformatted images were provided. Bilateral lower lobe bronchial wall thickening compatible with bronchitis is seen. Linear scarring involving the posterior right upper lung field is unchanged. Very small pleural effusions are unchanged. Diffuse emphysematous involvement of the lung roberts again seen. Right lung base linear atelectasis is noted but improved. Nodular infiltrate previously described involving the right upper lobe at the mid thoracic level has resolved. Linear atelectasis at the posterior left lung base is evident. This is improved compared to the prior exam. Pulmonary hyperinflation is present. Coronary arterial calcification is notable. Large hiatal hernia with the stomach intrathoracic in location. Liver, spleen, pancreas, adrenal glands, and left kidney are normal. Gallbladder fossa is unremarkable. Bifurcated endoluminal stent graft is present. No ascites or pelvic free fluid. Within the right pelvic region, there appears to be a mass present on axial image 43 which measures 4 cm x 3.3 cm. This is increased compared to previous exam of 01/25/2019 by approximately 1.5 cm in the axial plane. Oral contrast opacification of small bowel about this structure is evident but is no complete opacification of small bowel. L1 and L2 compression deformities again seen. Severe L5 compression deformity again noted. Spinal canal stenosis at L5 is again evident. Impression: Marked improvement in right basilar atelectasis and resolution of nodular infiltrate. The right pelvic region, there again appears to be a soft tissue density mass which has increased in the interval. Incomplete opacification of small bowel with contrast however is evident. The possibility of this finding representing collapsed small bowel is thought to be unlikely but not entirely excluded. Consider further evaluation CT of the pelvis with oral contrast and extended delay in scanning after oral contrast is administered for more definitive assessment. Large hiatal hernia with intrathoracic stomach. PQRS Compliance Statement: One or more of the following individualized dose reduction techniques were utilized for this examination: 1. Automated exposure control 2. Adjustment of the mA and/or kV according to patient size 3. Use of iterative reconstruction technique Electronically signed by: Roshan Medley MD (05/02/2019 3:58 PM) [facility]
== END | disposition home or self-care (01) ==
LOC: CT 11:05
PROVIDERS: ATTEND Internal Medicine Hematology & Oncology
DX: C34.90 Malignant neoplasm of unspecified part of unspecified bronchus or lung (principal); J98.11 Atelectasis; J98.4 Other disorders of lung; J90 Pleural effusion, not elsewhere classified; J43.9 Emphysema, unspecified; I25.10 Atherosclerotic heart disease of native coronary artery without angina pectoris; K44.9 Diaphragmatic hernia without obstruction or gangrene; R19.07 Generalized intra-abdominal and pelvic swelling, mass and lump; M43.8X6 Other specified deforming dorsopathies, lumbar region; M48.061 Spinal stenosis, lumbar region without neurogenic claudication; Z88.0 Allergy status to penicillin; Z92.21 Personal history of antineoplastic chemotherapy
CPT/HCPCS: 71260; 74177; Q9966; Q9967

== ENCOUNTER → 2019-08-02 | Outpatient (CLI) | payer MEDICARE ==
[2017-09-30 10:52] VITALS: BP 121/60
[~2019-08-02] MED LIST changes: +CONTRAST GIVEN. MC PRN; -IOHEXOL 300 MG/ML 100ML VIAL. IV ONE
--- NOTE | 2019-08-02 10:13 | RAD ---
CT CHEST ABDOMEN PELVIS WO Indication: Lung cancer. Bone metastases. Exposure: One or more of the following individualized dose reduction techniques were utilized for this examination: 1. Automated exposure control 2. Adjustment of the mA and/or kV according to patient size 3. Use of iterative reconstruction technique. Comparison: May 02, 2019 Technique: No intravenous contrast given. Oral contrast was given. Findings: Evaluation of solid viscera, bowel and vasculature is compromised by the noncontrast technique. Chest: Coronary artery calcifications. Ascending aorta measures 3.6 cm diameter, similar to the prior contrast study. No gross aortic aneurysm. No evidence of thyroid mass. No significant lymph node enlargement. Evaluation of hilar nodes somewhat limited without intravenous contrast. No significant pericardial effusion. No evidence of pleural effusion. Consolidation/atelectasis or more chronic fibrosis is again seen in the right lower lobe, this appears similar to the previous exam. Milder markings are identified in the left lower lobe also appears similar. No new dominant pulmonary mass is identified. No evidence of pneumothorax. Trachea and mainstem bronchi are grossly patent. Thoracic vertebral body height grossly intact. Degenerative spondylosis. No focal aggressive bone destruction or aggressive appearing bone lesion. Large hiatal hernia with most of the stomach in the chest. Abdomen pelvis: No definite liver lesion spleen upper limits normal size, 12 cm, unchanged. Pancreas difficult to distinguish from adjacent bowel loops which are not opacified, no obvious abnormality. No evidence of adrenal mass. Several tiny left renal calcifications, could be tiny nonobstructive calculi. Difficult to compare with prior contrast study. No hydronephrosis. The ureters are difficult to visualize. No calcified gallstone. Aorta calcified and ectatic. Aortoiliac stent in place no obvious pathologic lymph node enlargement is seen but detection could be difficult due to the lack of much peritoneal and retroperitoneal fat in this patient. Oral contrast extends through most of the small bowel. No findings of small bowel obstruction. Previous study described a masslike region within the right lower quadrant/pelvis. Again there are adjacent unopacified loops of small bowel in this area but no oral contrast within this tissue itself, which measures about 4.8 x 4.2 cm as compared with 4.1 x 4.0 cm on similar prior slice. Moderate stool identified throughout the colon no definite colonic wall thickening but limited evaluation due to the lack of much paracolonic fat. No significant ascites. No evidence of pneumoperitoneum. Severe compression fracture of L5, moderate compression fracture of L2, mild compression fracture of L1, are reidentified and appears similar to previous exam. Mild superior endplate depression or concavity at L3 and L4 is stable. No area of new aggressive bone destruction is identified. Urinary bladder is grossly unremarkable. IMPRESSION: 1. Previously described mass in the right lower quadrant/upper pelvis is again identified, more concerning for an actual soft tissue mass or metastatic [place], given its persistence and slight increase in size. 2. Mostly chronic appearing markings in both lungs, likely chronic fibrosis. 3. Stable lumbar spine fractures. 4 moderate retained stool throughout the colon. 5. Borderline splenomegaly, stable. Electronically signed by: Carson Cortez MD (08/02/2019 10:10 AM) [id number]
== END | disposition home or self-care (01) ==
LOC: CT 10:28
PROVIDERS: ATTEND Internal Medicine Hematology & Oncology
DX: C79.51 Secondary malignant neoplasm of bone (principal); C34.90 Malignant neoplasm of unspecified part of unspecified bronchus or lung; I25.10 Atherosclerotic heart disease of native coronary artery without angina pectoris; M47.814 Spondylosis without myelopathy or radiculopathy, thoracic region; K44.9 Diaphragmatic hernia without obstruction or gangrene; I70.0 Atherosclerosis of aorta; I77.819 Aortic ectasia, unspecified site; M48.56XA Collapsed vertebra, not elsewhere classified, lumbar region, initial encounter for fracture; R19.03 Right lower quadrant abdominal swelling, mass and lump; R16.1 Splenomegaly, not elsewhere classified; R19.5 Other fecal abnormalities
CPT/HCPCS: 71250; 74176; Q9966

== ENCOUNTER → 2019-08-10 | Outpatient (CLI) | payer MEDICARE ==
[2017-09-30 10:52] VITALS: BP 121/60
[~2019-08-10] MED LIST changes: -BISO5TAB4 PO; +BISO5TAB8 PO; -CONTRAST GIVEN. MC PRN; -IOHEXOL 240 MG/ML 50ML VIAL. PO ONE
--- NOTE | 2019-08-14 12:31 | RAD ---
Examination: PET W CT SKULL TO MIDTHIGH History: Lung cancer initial staging Comparison/Correlation: 08/02/2019 CT chest abdomen and pelvis without contrast FINDINGS: Net dose 11.86 mCi F-18 FDG was administered intravenously for purposes of PET/CT exam. Blood glucose level at the time of radiotracer administration was 97 mg/dL. Imaging was performed from the skull to the proximal thighs. Hepatic reference uptake is SUV max of 1.1 . Uptake of radiotracer involving the head and neck is normal. Atrophy is present. Uptake of radiotracer involving the thorax is unremarkable. The stomach is noted completely intrathoracic. Coronary arterial calcifications are present. Emphysematous involvement of the lung roberts noted. Right lower lobe linear atelectasis or scarring is unchanged compared to recent prior CT exam. Uptake of radiotracer involving the upper abdomen is unremarkable. Infrarenal bifurcated aortic stent graft is present. No enlarged upper abdominal lymph nodes. No radiopaque collecting system calculi. There is lobulated intense uptake is present corresponding to the patient's known right upper pelvic mass with SUV max of 11. No significant change in size is evident upon correlation with the recently performed CT exam of 08/02/2019. No other foci of suspicious uptake identified within the abdomen or pelvis. Distribution of radiotracer uptake within small bowel is evident. Degenerative changes of the low cervical spine are submitted. Compression fracture deformities involving the lumbar spine again seen. IMPRESSION: Intense uptake corresponding to the patient's known right upper pelvic mass concerning for conglomeration of lymphadenopathy or other neoplastic mass lesion. No other foci of abnormal radiotracer attenuation. PQRS Compliance Statement: One or more of the following individualized dose reduction techniques were utilized for this examination: 1. Automated exposure control 2. Adjustment of the mA and/or kV according to patient size 3. Use of iterative reconstruction technique Electronically signed by: Roshan Medley MD (08/14/2019 12:28 PM) [facility]
== END | disposition home or self-care (01) ==
LOC: PETSC 08:18
PROVIDERS: ATTEND Internal Medicine Hematology & Oncology
DX: C34.92 Malignant neoplasm of unspecified part of left bronchus or lung (principal); C79.51 Secondary malignant neoplasm of bone; J43.9 Emphysema, unspecified; I25.10 Atherosclerotic heart disease of native coronary artery without angina pectoris; M48.56XA Collapsed vertebra, not elsewhere classified, lumbar region, initial encounter for fracture; R91.8 Other nonspecific abnormal finding of lung field
CPT/HCPCS: 78815; A9552

== ENCOUNTER 2019-09-20 12:47 | Emergency (ER) | payer MEDICARE ==
[~2019-09-20] VITALS: Ht 167.6 cm; Wt 59.5 kg
[2019-09-20 13:29] LABS: BASO # 0.1 x10^3/uL (0.0-0.2); BASO % 1 % (0-3); EOS # 0.3 x10^3/uL (0.0-0.7); EOS % 4 % (0-3); HEMATOCRIT 39.5 % (39.0-53.0); LYMPH # 1.1 x10^3/uL (1.0-4.8); LYMPH % 16 % (24-48); MEAN CORPUSCULAR HEMOGLOBIN 30 pg (25-35); MEAN CORPUSCULAR HGB CONC 33 g/dL (31-37); MEAN CORPUSCULAR VOLUME 90 fL (79-100); MONO # 0.7 x10^3/uL (0.0-1.1); MONO % 10 % (0-9); NEUT # 4.8 x10^3/uL (1.8-7.7); NEUT % 69 % (31-73); PLATELET COUNT 236 x10^3/uL (140-400); RED BLOOD COUNT 4.41 x10^6/uL (4.30-5.70); RED CELL DISTRIBUTION WIDTH 13.6 % (11.5-14.5); WHITE BLOOD COUNT 6.9 x10^3/uL (4.0-11.0)
[2019-09-20] MEDS ORDERED: dilTIAZem IV PUSH 25 MG/5 ML VIAL IVP ONE (13:30)
--- NOTE | 2019-09-20 13:31 | PHYS DOC ---
Past Medical History Past Medical History: CHF, COPD, Hypertension, Other Additional Past Medical Histor: AAA Past Surgical History: Other Additional Past Surgical Histo: HERNIA REPAIR, STENT, INGROWN TOENAILS Smoking Status: Former Smoker Alcohol Use: None Drug Use: None Adult General Chief Complaint Chief Complaint: RAPID HEART RATE [facility] HPI Patient is a 74 year old male with history of hypertension, COPD, CHF, AAA, metastatic lung cancer to the point on chemotherapy and radiation therapy who presents with complaining of fast heart beat. Patient states he was at least oncology office and had fast heartbeat and was advised to come to emergency r oom. Patient denies chest pain, palpitation, dizziness, focal neuro deficit, and chills. Patient complaining of chronic shortness of breath related to COPD without new changes. Patient is very unhappy for coming to emergency room and doesn't want answer the question and states he has to go home and gices ride to his son to go to work and come back home and taking care of for several issues at home. Review of Systems Review of Systems Constitutional: Denies fever or chills [] Eyes: Denies change in visual acuity, redness, or eye pain [] HENT: Denies nasal congestion or sore throat [] Respiratory: Reports cough and shortness of breath Cardiovascular: No additional information not addressed in HPI [] GI: Denies abdominal pain, nausea, vomiting, bloody stools or diarrhea [] : Denies dysuria or hematuria [] Musculoskeletal: Denies back pain or joint pain [] Integument: Denies rash or skin lesions [] Neurologic: Denies headache, focal weakness or sensory changes [] Endocrine: Denies polyuria or polydipsia [] All other systems were reviewed and found to be within normal limits, except as documented in this note. Current Medications Current Medications Current Medications Medications (Trade) Dose Ordered Sig/Ana Start Time Stop Time Status Last Admin Dose Admin Diltiazem HCl (Cardizem Iv Push) 20 mg 1X ONCE 09/20/19 13:30 09/20/19 13:31 DC 09/20/19 13:47 10 MG Allergies Allergies Allergies Coded Allergies Type Severity Reaction Last Updated Verified Penicillins Allergy Intermediate CHILDHOOD REACTION 09/19/17 Yes Physical Exam Physical Exam Constitutional: Well developed, well nourished, mild distress, non-toxic appear ance , unpleasant and unhappy and anxious. [] HENT: Normocephalic, atraumatic. Eyes: PERRLA, EOMI, conjunctiva normal, no discharge. [] Neck: Normal range of motion, no tenderness, supple, no stridor. [] Cardiovascular: Irregularly irregular rhythm with tachycardia, no murmur [] Lungs & Thorax: No respiratory distress, decrease of air movement bilaterally . Abdomen: Bowel sounds normal, soft, no tenderness, no masses, no pulsatile masses. [] Skin: Warm, dry, no erythema, no rash. [] Back: No tenderness, no CVA tenderness. [] Extremities: No tenderness, no cyanosis, no clubbing, ROM intact, no edema. [] Neurologic: Alert and oriented X 3, no focal deficits noted. [] Psychologic: Affect anxious, mood normal. [] Current Patient Data Vital Signs Vital Signs Date Time Temp Pulse Resp B/P (MAP) Pulse Ox O2 Delivery O2 Flow Rate FiO2 09/20/19 14:30 86 20 109/63 (78) 93 09/20/19 14:15 Room Air 09/20/19 12:54 97.7 97.7 Lab Values Laboratory Tests Test 09/20/19 13:15 White Blood Count 6.9 x10^3/uL (4.0-11.0) Red Blood Count 4.41 x10^6/uL (4.30-5.70) Hemoglobin 13.0 g/dL (13.0-17.5) Hematocrit 39.5 % (39.0-53.0) Mean Corpuscular Volume 90 fL (79-100) Mean Corpuscular Hemoglobin 30 pg (25-35) Mean Corpuscular Hemoglobin Concent 33 g/dL (31-37) Red Cell Distribution Width 13.6 % (11.5-14.5) Platelet Count 236 x10^3/uL (140-400) Neutrophils (%) (Auto) 69 % (31-73) Lymphocytes (%) (Auto) 16 % (24-48) L Monocytes (%) (Auto) 10 % (0-9) H Eosinophils (%) (Auto) 4 % (0-3) H Basophils (%) (Auto) 1 % (0-3) Neutrophils # (Auto) 4.8 x10^3/uL (1.8-7.7) Lymphocytes # (Auto) 1.1 x10^3/uL (1.0-4.8) Monocytes # (Auto) 0.7 x10^3/uL (0.0-1.1) Eosinophils # (Auto) 0.3 x10^3/uL (0.0-0.7) Basophils # (Auto) 0.1 x10^3/uL (0.0-0.2) Prothrombin Time 14.7 SEC (11.7-14.0) H Prothrombin Time INR 1.2 (0.8-1.1) H D-Dimer (Stephany) 1.19 ug/mlFEU (0.00-0.50) H Sodium Level 139 mmol/L (136-145) Potassium Level 4.1 mmol/L (3.5-5.1) Chloride Level 102 mmol/L (98-107) Carbon Dioxide Level 31 mmol/L (21-32) Anion Gap 6 (6-14) Blood Urea Nitrogen 23 mg/dL (8-26) Creatinine 1.9 mg/dL (0.7-1.3) H Estimated GFR (Cockcroft-Gault) 34.8 BUN/Creatinine Ratio 12 (6-20) Glucose Level 97 mg/dL (70-99) Calcium Level 8.3 mg/dL (8.5-10.1) L Magnesium Level 2.1 mg/dL (1.8-2.4) Total Bilirubin 0.7 mg/dL (0.2-1.0) Aspartate Amino Transferase (AST) 27 U/L (15-37) Alanine Aminotransferase (ALT) 20 U/L (16-63) Alkaline Phosphatase 176 U/L (46-116) H Creatine Kinase 114 U/L (39-308) Troponin I Quantitative < 0.017 ng/mL (0.000-0.055) OC-Dkl-X-Type Natriuretic Peptide 2231 pg/mL (0-124) H Total Protein 7.9 g/dL (6.4-8.2) Albumin 3.3 g/dL (3.4-5.0) L Albumin/Globulin Ratio 0.7 (1.0-1.7) L Lipase 74 U/L (73-393) Thyroid Stimulating Hormone (TSH) 1.222 uIU/mL (0.358-3.74) Laboratory Tests 09/20/19 13:15 Laboratory Tests 09/20/19 13:15 EKG EKG EKG interpreted by me. EKG at 1305 showed atrial fibrillation with RVR, abnormal left axis deviation, right bundle-branch block, LVH with repolarization abnormality, multiple artifact, no acute ST and T-wave elevation. Radiology/Procedures Radiology/Procedures [[facility] [address] [place] [address] IMAGING REPORT Signed PATIENT: HERACLIO GUO ACCOUNT: [id number] : 1945 LOCATION: ER AGE: 74 SEX: M EXAM STATUS: REG ER ORD. PHYSICIAN: DINH ARENAS MD REASON: A. fibrillation with RVR PROCEDURE: PORTABLE CHEST 1V AP chest. HISTORY: Atrial fibrillation with rapid ventricular rate, lung cancer AP view was taken of the chest. Heart is normal in size. There is a large hiatus hernia. There is mild fullness at the right hilum although similar to prior studies related to a prominent pulmonary artery. No new infiltrates are noted. There is no effusion. IMPRESSION: 1. Large hiatus hernia. 2. Fullness of the right hilum with little change from old studies. 3. No new infiltrates. Electronically signed by: Wong King MD (09/20/2019 1:35 PM) [id number] DICTATED and SIGNED BY: WONG KING MD DATE: 09/20/19 3889 ] Course & Med Decision Making Course & Med Decision Making Pertinent Labs and Imaging studies reviewed. (See chart for details) Evaluation of patient in ER showed 74-year-old male patient with asymptomatic atrial fibrillation with RVR. Patient refused hospitalization and treated with Cardizem bolus of 10 mg of decrease of heart rate to 80s with atrial fibrillation. Cardioversion on-call was consulted and responded at 1431 and recommended to increase Bisoprolol from 5 mg to 10 mg daily and follow up with his office in 2 weeks. I've spoken with the patient and/or caregivers. I've explained the patient's condition, diagnosis and treatment plan based on information available to me at this time. I've answered the patient's and/or caregivers questions and addressed any concerns. The patient and/or caregivers have a good understanding the patient's diagnosis, condition and treatment plan as can be expected at this point. Vital signs have been stabilized. The patient's condition is stable for discharge from the emergency department. The patient will pursue further outpatient evaluation with her primary care provider or other designated consulting physician as outlined in the discharge instructions. Patient and/or caregivers are agreeable to this plan of care and follow-up instructions have been explained in detail. The patient and/or caregivers have received these instructions in written format and expressed understanding of these discharge instructions. The patient and her caregivers are aware that if any significant change in condition or worsening of symptoms should prompt him to immediately return to this of the closest emergency departm ent. If an emergent department is not readily available I would encourage him to call 911. Dragon Disclaimer Dragon Disclaimer This electronic medical record was generated, in whole or in part, using a voice recognition dictation system. Departure Departure Impression: Primary Impression: Atrial fibrillation with RVR Additional Impressions: Noncompliance by refusing service Congestive heart failure Renal insufficiency Lung cancer metastatic to bone Disposition: HOME, SELF-CARE (at 1443) Condition: IMPROVED Referrals: ISMAEL MEHTA MD (PCP) MAYUR BUSTAMANTE MD Patient Instructions: Atrial Fibrillation Additional Instructions: Take your home medication Bisoprolol Fumarate 5 mg by mouth 2 pills at the same time every day instead of one pill daily Follow-up with your primary care physician in 3-5 days Return to ER if not getting better Follow up with store sales manager in 1-2 weeks Thank you for visiting [facility]. We appreciate you trusting us with your care. If any additional problems come up don't hesitate to return to visit us. Please follow up with your primary care provider so they can plan additional care if needed and know about the problem that you had. If symptoms worsen come back to the Emergency Department. Any concerning symptoms that start such as chest pain, shortness of air, weakness or numbness on one side of the body, running high fevers or any other concerning symptoms return to the ER. Problem Qualifiers Additional Impressions: Congestive heart failure Heart failure type: unspecified Heart failure chronicity: unspecified Qualified Codes: I50.9 - Heart failure, unspecified DINH ARENAS MD Sep 20, 2019 13:30
--- NOTE | 2019-09-20 13:38 | RAD ---
AP chest. HISTORY: Atrial fibrillation with rapid ventricular rate, lung cancer AP view was taken of the chest. Heart is normal in size. There is a large hiatus hernia. There is mild fullness at the right hilum although similar to prior studies related to a prominent pulmonary artery. No new infiltrates are noted. There is no effusion. IMPRESSION: 1. Large hiatus hernia. 2. Fullness of the right hilum with little change from old studies. 3. No new infiltrates. Electronically signed by: Wong King MD (09/20/2019 1:35 PM) [id number]
[2019-09-20 13:41] LABS: CALCIUM 8.3 mg/dL (8.5-10.1); CREATININE 1.9 mg/dL (0.7-1.3); GFR 34.8; POTASSIUM 4.1 mmol/L (3.5-5.1)
[2019-09-20 13:46] LABS: ALBUMIN 3.3 g/dL (3.4-5.0); ALBUMIN/GLOBULIN RATIO 0.7 (1.0-1.7); MAGNESIUM 2.1 mg/dL (1.8-2.4); TOTAL BILIRUBIN 0.7 mg/dL (0.2-1.0); TOTAL PROTEIN 7.9 g/dL (6.4-8.2)
[2019-09-20 13:56] LABS: PROTHROMBIN TIME PATIENT 14.7 SEC (11.7-14.0)
--- NOTE | 2019-09-20 14:21 | EKG ---
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
[2019-09-20 14:30] VITALS: BP 109/63
== END 2019-09-20 15:00 | disposition home or self-care (01) ==
LOC: ER 12:47
DX: I48.20 Chronic atrial fibrillation, unspecified (principal); Z91.19 Patient's noncompliance with other medical treatment and regimen; N28.9 Disorder of kidney and ureter, unspecified; I11.0 Hypertensive heart disease with heart failure; I50.9 Heart failure, unspecified; J44.9 Chronic obstructive pulmonary disease, unspecified; Z85.118 Personal history of other malignant neoplasm of bronchus and lung; Z85.830 Personal history of malignant neoplasm of bone; Z95.5 Presence of coronary angioplasty implant and graft; Z87.891 Personal history of nicotine dependence; Z88.0 Allergy status to penicillin
CPT/HCPCS: 36415; 71045; 80053; 82550; 83690; 83735; 83880; 84443; 84484; 85025; 85379; 85610; 93005; 96374; 99285; J3490